=== PATIENT | female | born 1960 | race Caucasian/White ===

== ENCOUNTER 2018-03-13 14:39 | Inpatient (IN) | payer OTHER ==
[~2018-03-13] VITALS: Ht 157.5 cm; Wt 64.9 kg
--- NOTE | ~2018-03-13 | CON ---
[place], [place] REPORT OF CONSULTATION NAME: LYUDMILA PHIPPS UNIT #: [id number] ROOM: 422 DOCTOR: MICHELINE SARKARELEAZARHILDA BIRTHDATE: [birth year] DOS: 03/14/2018 HISTORY OF PRESENT ILLNESS: This is a 57-year-old patient who presented with multiple medical issues among which has been nausea, vomiting, and left upper quadrant pain. The patient had been admitted for definitive evaluation. Initially, when she was admitted, white blood cell was 10, H and H of 13 and 39. Differential within normal limits. INR 0.9. Comprehensive metabolic panel, GFR greater than 60. Electrolytes balance, liver function tests and troponin normal. Chest x-ray was no acute cardiopulmonary pathology. Urinalysis 2+ ketones. White blood cell benign. Troponin again was repeated. CT scan of the abdomen and pelvis, suspected colitis of the splenic flexure. Lactic acid 1.0. Troponin continued to be normal. White blood cell continued to be normal. Urine cultures were negative. Hemoglobin A1c was 6.0. B12, folate was within normal limit. PAST MEDICAL HISTORY: Associated with diverticulosis. PAST SURGICAL HISTORY: Right knee arthroscopy and . SOCIAL HISTORY: Nonsmoker and nonalcohol consumer. FAMILY HISTORY: Noncontributory. ALLERGIES: DEMEROL AND LATEX. HOME MEDICATIONS: None. REVIEW OF SYSTEMS: HEENT: Denies double vision or blurred vision. RESPIRATORY: Denies shortness of breath. CARDIOVASCULAR: Denies acute chest pain. DIGESTIVE SYSTEM: Nausea, vomiting, and left upper quadrant pain. PHYSICAL EXAMINATION: VITAL SIGNS: Within normal limits. HEENT: Head normocephalic and nontraumatic. Eyes: Pupils round and reactive. Mouth and buccal mucosa benign. NECK: Supple, no thyromegaly, no cervical lymphadenopathy. CHEST: Symmetric anatomy, equal expansion. No wheeze, no rhonchi. HEART: Normal sinus rhythm, no gallop, no murmur. ABDOMEN: Soft. No hepato-organomegaly. Bowel sounds present. No pulsatile mass. Nonspecific tenderness in left upper quadrant. EXTREMITIES: No cyanosis, no pedal edema. NEUROLOGIC: Alert, oriented to time, place, and person. IMPRESSION: Abdominal pain, nausea, and vomiting. CT scan of the abdomen, nonspecific findings of colitis in the left upper quadrant. PLAN AND DISCUSSION: Upper and lower endoscopy clinical reassessment. [place], [place] REPORT OF CONSULTATION NAME: LYUDMILA PHIPPS UNIT #: [id number] ROOM: 422 DOCTOR: MICHELINE SARKAR,SABAS BIRTHDATE: [birth year] Thank you very much indeed for your kind referral. SABAS TOBIAS MD CM:CONSTR:REPORT OF CONSULTATION 1203 03/14/18 1436 interface
--- NOTE | ~2018-03-13 | O ---
[place], [place] OPERATIVE NOTE NAME: LYUDMILA PHIPPS UNIT #: [id number] ROOM: 422 DOCTOR: SABAS TOBIAS MD BIRTHDATE: [birth year] DOS: 03/14/2018 INDICATION FOR PROCEDURE: The patient has presented with left upper quadrant pain, nausea, and vomiting, undergoing investigation. PROCEDURE: Today's procedure part of investigation is panendoscopy and colonoscopy. PREMEDICATION: Propofol. SCOPE: Olympus forward-viewing gastroscope Q10 video. REPORT: After putting the patient in left lateral position and application of lubricant to the scope, the scope was introduced. Thereafter, under direct visualization, advanced through the length of esophagus without difficulty. Gastric pouch was entered. Evidence of gastritis, gastric erosions identified. Antral biopsy obtained. Duodenal bulb, second and third part within normal limits. The patient extubated and tolerated the procedure well. IMPRESSION: Gastritis erosion. PLAN AND DISCUSSION: We are going to proceed with colonoscopic evaluation for abdominal pain and left upper quadrant pain. As far as upper GI is concerned, we are going to keep this patient on Protonix 40 mg every day. Awaiting H. pylori resolved and reassessment. GASTROENDOSCOPIC REPORT: INDICATION FOR PROCEDURE: The patient has presented with a chief complaint of abdominal pain, left lower quadrant pain, left upper quadrant pain. Today's procedure part of investigation is colonoscopy. PREMEDICATION: Propofol. SCOPE: Olympus forward-viewing colonoscope 10L video. REPORT: After putting the patient in left lateral position and application of lubricant to the scope, the scope was introduced. Thereafter, under direct visualization, I advanced through the length of colon without difficulty. Colon mucosa and vascularity carefully examined. Left-sided diverticulosis was appreciated. Base of the cecum explored. Appendiceal orifice identified. Tortuosity of colon was experienced. Air was suctioned out. The patient was extubated and tolerated the procedure well. IMPRESSION AND PLAN: Diverticulosis, left-sided in character, but this could contribute with her chronic nagging abdominal pain. CT scan of the abdomen and pelvis has been negative except diverticulosis. [place], [place] OPERATIVE NOTE NAME: LYUDMILA PHIPPS UNIT #: [id number] ROOM: 422 DOCTOR: MICHELINE SARKAR,SABAS BIRTHDATE: [birth year] PLAN AND DISCUSSION: High fiber diet. ACTIVITY: Ad augustina. FOLLOWUP: As outpatient. Photographic series have been attached to the chart for future reference. SABAS TOBIAS MD CM:OPRECORD:OPERATIVE NOTE 1203 [id number] SABAS TOBIAS MD 03/14/18 1442 interface
--- NOTE | ~2018-03-13 | EKG ---
[place], [place] ELECTROCARDIOGRAM REPORT NAME: LYUDMILA PHIPPS UNIT #: [id number] ROOM: 422 DOCTOR: HUA DRAFT REPORT BIRTHDATE: [birth year] [facility] Test Date: 2018-03-13 Test Time: 14:42:25 Pat Name: LYDUMILA PHIPPS Department: Room: 422 Gender: F Spreader Operator: : [id number] Requested By: BEAR BAIG Order Number: [id number] Reading MD: Bradford Cheema MD Measurements Intervals [place] Rate: 99 P: 61 UT: 139 QRS: 38 QRSD: 110 T: 34 QT: 353 QTc: 453 Interpretive Statements Sinus rhythm RSR' in V1 or V2, right VCD or RVH Borderline T abnormalities, anterior leads No previous ECG available for comparison Electronically Signed On 03-15-2018 11:21:40 PST by Bradford Cheema MD CM:EKGRPT:ELECTROCARDIOGRAM REPORT 1442 [id number] BEAR SEQUEIRA DRAFT REPORT BEAR BAIG M.D.
[2018-03-13 14:40] VITALS: BP 135/73
[2018-03-13 15:00] LABS: BASO # 0.1 10*3/uL (0.0-0.1); BASO % 0.5 % (0.0-1.0); EOS # 0.1 10*3/uL (0.0-0.4); HEMATOCRIT 39.5 % (37.0-47.0); LYMPH # 3.2 10*3/uL (1.3-4.4); LYMPH % 29.6 % (27.0-41.0); MEAN CELL VOLUME 92.5 fl (81.0-99.0); MEAN CORPUSCULAR HGB 30.4 pg (27.0-31.0); MEAN CORPUSCULAR HGB CONC 32.9 g/dl (33.0-37.0); MEAN PLATELET VOLUME 9.4 fl (9.6-12.3); MONO # 0.8 10*3/uL (0.1-1.0); MONO % 7.2 % (3.0-9.0); NEUT # 6.5 10*3/uL (2.3-7.9); NEUT % 61.4 % (47.0-73.0); PLATELET COUNT AUTOMATED 289 10*3/uL (130-400); RED BLOOD COUNT 4.27 10*6/uL (4.10-5.10); RED CELL DISTRI WIDTH 12.7 % (0-14.5); WHITE BLOOD COUNT 10.6 10*3/uL (4.8-10.8)
[2018-03-13 15:09] LABS: ACT PARTIAL THROMBO TIME 25.4 SECONDS (20.8-31.5); INTERNATIONAL NORM RATIO 0.9 (2.0-3.5)
[2018-03-13 15:20] LABS: ALBUMIN 3.8 gm/dl (3.1-4.5); ALKALINE PHOSPHATASE 85 U/L (45-117); BUN 15 mg/dl (7-24); CHLORIDE 106 mmol/L (98-107); CREATININE 0.66 mg/dL (0.55-1.02); POTASSIUM 3.5 mmol/L (3.5-5.1); SGOT/AST 17 IU/L (3-35); SGPT/ALT 24 U/L (12-78); SODIUM 138 mmol/L (136-145); TOTAL PROTEIN 7.8 gm/dL (6.4-8.2)
[2018-03-13 15:21] LABS: TROPONIN I < 0.015 ng/ml (<0.045)
[2018-03-13 16:16] VITALS: BP 132/78
[2018-03-13 16:35] LABS: BILIRUBIN NEGATIVE (NEGATIVE); BLOOD TRACE-INTACT (NEGATIVE); CLARITY CLEAR (CLEAR); COLOR YELLOW (YELLOW); GLUCOSE NEGATIVE (NEGATIVE); KETONE 2+ (NEGATIVE); LEUKO ESTERASE TRACE (NEGATIVE); NITRITE NEGATIVE (NEGATIVE); UROBILINOGEN 0.2 E.U./dl (0.2-1.0)
[2018-03-13 16:49] LABS: EPITHELIAL CELLS 0-2
[2018-03-13 17:16] VITALS: BP 116/66
[2018-03-13 18:35] VITALS: BP 110/64
[2018-03-13 19:30] VITALS: BP 124/74
[2018-03-14] VITALS (7 sets, daily range): BP systolic 71–122; BP diastolic 33–68
[2018-03-14 06:42] LABS: BASO % 0.4 % (0.0-1.0); EOS % 0.4 % (1.0-4.0); HEMOGLOBIN 12.4 g/dl (12.0-16.0); LYMPH # 1.5 10*3/uL (1.3-4.4); LYMPH % 18.8 % (27.0-41.0); MEAN CORPUSCULAR HGB 30.7 pg (27.0-31.0); MEAN CORPUSCULAR HGB CONC 31.8 g/dl (33.0-37.0); MEAN PLATELET VOLUME 9.7 fl (9.6-12.3); MONO # 0.6 10*3/uL (0.1-1.0); MONO % 7.4 % (3.0-9.0); NEUT # 5.9 10*3/uL (2.3-7.9); NEUT % 72.8 % (47.0-73.0); PLATELET COUNT AUTOMATED 289 10*3/uL (130-400); RED BLOOD COUNT 4.04 10*6/uL (4.10-5.10); RED CELL DISTRI WIDTH 12.9 % (0-14.5); WHITE BLOOD COUNT 8.1 10*3/uL (4.8-10.8)
[2018-03-14 06:43] LABS: ALBUMIN 3.8 gm/dl (3.1-4.5); ALKALINE PHOSPHATASE 77 U/L (45-117); BUN 13 mg/dl (7-24); CHLORIDE 110 mmol/L (98-107); CHOLESTEROL 185 mg/dL (<200); FREE T4 1.03 ng/dl (0.76-1.46); HDL CHOLESTEROL 68 mg/dl (40-60); LDL CHOLESTEROL 100 mg/dL (9-159); PHOSPHOROUS 3.6 mg/dL (2.5-4.9); POTASSIUM 3.9 mmol/L (3.5-5.1); SGOT/AST 14 IU/L (3-35); SGPT/ALT 22 U/L (12-78); SODIUM 142 mmol/L (136-145); TOTAL PROTEIN 7.8 gm/dL (6.4-8.2); TRIGLYCERIDES 84 mg/dl (<150); VLDL CHOLESTEROL 17 mg/dL (6-40)
[2018-03-14 06:44] LABS: MEAN CELL VOLUME 96.5 fl (81.0-99.0)
[2018-03-14 06:51] LABS: ACT PARTIAL THROMBO TIME 26.5 SECONDS (20.8-31.5); INTERNATIONAL NORM RATIO 0.9 (2.0-3.5)
[2018-03-14 08:06] LABS: VITAMIN D, 25-HYDROXY 21.4 ng/mL (30-100)
[2018-03-14] MEDS ORDERED: CIPRO500 MG PO (15:24)
[2018-03-14] MEDS ORDERED: ZOFRAN4 MG PO (15:24)
[2018-03-14] MEDS ORDERED: FLAGYL500 MG PO (15:24)
== END 2018-03-14 15:42 | disposition home or self-care (01) | DRG 872 ==
LOC: ED 14:39 → EDHOLD 19:02 → 4E 19:02
PROVIDERS: Emergency Medicine; Family Medicine; ADMIT Internal Medicine
DX: A41.9 Sepsis, unspecified organism (principal); N39.0 Urinary tract infection, site not specified; K52.9 Noninfective gastroenteritis and colitis, unspecified; K25.9 Gastric ulcer, unspecified as acute or chronic, without hemorrhage or perforation; K29.70 Gastritis, unspecified, without bleeding; R07.9 Chest pain, unspecified; Z66 Do not resuscitate; Z51.5 Encounter for palliative care; R73.9 Hyperglycemia, unspecified; R06.82 Tachypnea, not elsewhere classified; R82.4 Acetonuria; K57.30 Diverticulosis of large intestine without perforation or abscess without bleeding; Z88.5 Allergy status to narcotic agent; Z88.8 Allergy status to other drugs, medicaments and biological substances; Z91.040 Latex allergy status; Z82.49 Family history of ischemic heart disease and other diseases of the circulatory system

== ENCOUNTER → 2024-10-31 | Outpatient (CLI) | payer MEDICARE ==
[~2024-10-31] MED LIST: CIPRO500 MG PO; FLAGYL500 MG PO; IOHEXOL 300 MG/ML 100 ML VIAL IV ONE; ZOFRAN4 MG PO
== END ==
LOC: CT 00:32
PROVIDERS: ATTEND Nurse Practitioner Primary Care
DX: M47.812 Spondylosis without myelopathy or radiculopathy, cervical region (principal); R20.2 Paresthesia of skin; M48.02 Spinal stenosis, cervical region

== ENCOUNTER → 2024-11-14 | Outpatient (CLI) | payer MEDICARE ==
[~2024-11-14] MED LIST changes: -IOHEXOL 300 MG/ML 100 ML VIAL IV ONE
== END | disposition home or self-care (01) ==
LOC: US 04:34
PROVIDERS: ATTEND Nurse Practitioner Primary Care
DX: I65.23 Occlusion and stenosis of bilateral carotid arteries (principal); R55 Syncope and collapse; H53.9 Unspecified visual disturbance